=== PATIENT | female | born 2000 | race African-American/Black ===

== ENCOUNTER 2022-06-06 00:27 | Emergency (ER) | payer SELFPAY ==
--- OUTSIDE RECORDS SUMMARY | 2022-06-06 00:30 | XMS REPORT | Continuity of Care Document ---
:2000 Author Organization [facility] t Address [address] [facility] [address] [place] [address] Care Team Providers Name Role Phone NAYELI Attending Clinician Unavailable beverley Attending Clinician Unavailable VIKKI GASTON D.O. Attending Clinician Unavailable MARY FUNK Attending Clinician Unavailable ALVA SORIANO Attending Clinician Unavailable NAYELI Admitting Clinician Unavailable beverley Admitting Clinician Unavailable Problems Condition Condition Condition Status Onset Resolution Last Treating Co mments Source Name Details Category Date Date Treatment Clinician Date Missed Missed Diagnosis Active Common menses menses Spirit [facility] Adult BMI Adult BMI Diagnosis Active C ommon 50.0-59.9 50.0-59.9 Spir it kg/sq m kg/sq m [facility] Encounter Encounter Diagnosis Active C ommon for for Spirit preventati preventati - CHI ve adult ve adult [facility] care exam care exam Medi selene with with Center abnormal abnormal findings findings Allergies, Adverse Reactions, Alerts This patient has no known allergies or adverse reactions. Medications This patient has no known medications. Procedures This patient has no known procedures. Encounters Start End Encounter Admission Attending Care Care Encounter Source Date/Time Date/Time Type Type Clinicians Facility Department ID 2021-10-10 2021-10-10 Outpatient CARMEN CADET [id number] [place] 00:00:00 00:00:00 HN [id number] da [facility] 2020-01-02 2020-01-02 Outpatient beverley SHEA [facility] [id number] [place] 12:13:00 12:13:00 [id number] [facility] 2017-08-24 2017-08-24 Outpatient [facility] [id number] Common 15:00:00 15:00:00 t [facility] 2015-10-19 2015-10-19 Outpatient VIKKI FARRELL [facility] [id number] [place] 11:59:00 11:59:00 [id number] [facility] 2015-09-21 2015-09-21 Outpatient VIKKI FARRELL [facility] [id number] [place] 10:07:00 10:07:00 -[id number] [facility] 2008-11-05 2008-11-06 Emergency ER BA, MARY [facility] [id number] [place] 20:10:00 00:20:00 -[id number] [facility] 2007-01-29 2007-01-29 Outpatient DAISY MCADAMS [facility] [id number] [place] 07:59:00 07:59:00 ALVA Gunter -[id number] [facility] Results This patient has no known results.
[2022-06-06 01:39] LABS: Specific Gravity > 1.030 (1.005-1.030); Urine Bacteria <20 /HPF (<20); Urine Bilirubin NEGATIVE (Negative); Urine Blood 2+ (Negative); Urine Clarity Clear (Clear); Urine Color Light-Yellow (Yellow); Urine Glucose NEGATIVE (Negative); Urine Mucus Slight /HPF (None Seen); Urine Protein NEGATIVE (Negative); Urine Urobilinogen 1+ (Normal); Urine pH 5.5 (5.0-7.0)
[2022-06-06 01:41] LABS: Specific Gravity > 1.030 (1.005-1.030)
[2022-06-06] MEDS ORDERED: KETOROLAC 30 MG/ML INJ ONE (01:42)
[2022-06-06] MEDS ORDERED: LIDOCAINE 4% PATCH ONE (01:42)
--- NOTE | 2022-06-06 04:10 | EDPHYS ---
Physician Documentation [facility] Name: Michaela Wiseman Age: 21 yrs Sex: Female : 2000 Arrival Date: 06/06/2022 Time: 00:32 Bed Treatment Private MD: ED Physician Reza Rodriguez HPI: 06/06 01:10 This 21 yrs old Black Female presents to ER via Ambulatory with complaints of BODY cp ACHES LOW BACK PAIN. 01:10 The patient presents with pain that is acute, with no known mechanism of injury. cp 01:10 The symptoms are located in the low back. Onset: The symptoms/episode began/occurred 2 cp month(s) ago, started upon awakening. Associated signs and symptoms: Pertinent positives: body aches, bilateral leg pain, Pertinent negatives: abdominal pain, fever, numbness, weakness, bowel and/or bladder incontinence, saddle anesthesia, weakness. Severity of symptoms: in the emergency department the symptoms have improved, moderately. 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 - Social history:: Smoking status: Reported history of juuling and/or vaping. ROS: 01:15 Constitutional: Positive for body aches, Negative for chills, fever, poor PO intake. cp 01:15 Eyes: Negative for injury, pain, redness, and discharge. cp 01:15 ENT: Negative for drainage from ear(s), ear pain, sore throat, difficulty swallowing, difficulty handling secretions. 01:15 Cardiovascular: Negative for chest pain. 01:15 Respiratory: Negative for cough, shortness of breath, wheezing. 01:15 Abdomen/GI: Negative for abdominal pain, nausea, vomiting, and diarrhea, constipation, bowel incontinence. 01:15 Back: Positive for pain at rest, pain with movement. 01:15 : Negative for urinary symptoms, difficulty urinating, bladder incontinence. 01:15 MS/extremity: Positive for pain, of the right leg and left leg, Negative for injury or acute deformity, decreased range of motion. 01:15 Neuro: Negative for altered mental status, headache, numbness, weakness. 01:15 All other systems are negative. Exam: 01:20 Constitutional: The patient appears in no acute distress, alert, awake, non-toxic, well cp developed, well nourished, obese. 01:20 Head/Face: Normocephalic, atraumatic. cp 01:20 Eyes: Periorbital structures: appear normal, Conjunctiva: normal, no exudate, no injection, Sclera: no appreciated abnormality, Lids and lashes: appear normal, bilaterally. 01:20 ENT: External ear(s): are unremarkable, Nose: is normal, Mouth: Lips: moist, Oral mucosa: pink and intact, moist, Posterior pharynx: is normal, airway is patent, no erythema, no exudate. 01:20 Chest/axilla: Inspection: normal. 01:20 Cardiovascular: Rate: normal, Rhythm: regular, Edema: is not appreciated, JVD: is not appreciated. 01:20 Respiratory: the patient does not display signs of respiratory distress, Respirations: normal, no use of accessory muscles, no retractions, labored breathing, is not present, Breath sounds: are clear throughout, no decreased breath sounds, no stridor, no wheezing. 01:20 Abdomen/GI: Inspection: obese Bowel sounds: active, all quadrants, Palpation: abdomen is soft and non-tender, in all quadrants. 01:20 Back: pain, that is moderate, of the lumbar area, ROM is painful, with all movement, Straight leg raises: of both lower extremities does not illicit pain. 01:20 Neuro: Orientation: to person, place \T\ time. Mentation: is normal, Motor: moves all fours, strength is normal, Sensation: is normal, Deep tendon reflexes are 2+ (normal) in the right patellar, right Achilles, left patellar and left Achilles. Vital Signs: 00:45 BP 118 / 79; Pulse 71; Resp 18; Temp 98.5; Pulse Ox 99% ; Weight 131.54 kg (R); Height kl 5 ft. 1 in. ; Pain 8/10; 00:45 Body Mass Index 54.79 (131.54 kg, 154.94 cm) kl 00:45 Pain Scale: Adult kl MDM: 00:41 Patient medically screened. rn 01:00 Differential diagnosis: Cholelithiasis Pyelonephritis ruptured disc, Ureterolithiasis cp vertebral fracture, sciatica, cauda equina, kidney stone, ureter stone. 01:59 ED course: US tech reports negative DVT study. cp 04:08 Data reviewed: vital signs, nurses notes, lab test result(s), radiologic studies, CT cp scan. 04:08 I considered the following discharge prescriptions or medication management in the cp emergency department Medications were administered in the Emergency Department. See MAR. Care significantly affected by the following chronic conditions: Obesity. Counseling: I had a detailed discussion with the patient and/or guardian regarding: the historical points, exam findings, and any diagnostic results supporting the discharge/admit diagnosis, lab results, radiology results, the need for outpatient follow up, a family practitioner, to return to the emergency department if symptoms worsen or persist or if there are any questions or concerns that arise at home. Response to treatment: the patient's symptoms have mildly improved after treatment, and as a result, I will discharge patient. 06/06 01:00 Order name: Urine W/Microscopic (UAM); Complete Time: 01:49 cp 06/06 01:49 Interpretation: Normal except: Urine SG > 1.030; UKET 1+; UBLD 2+; UUROB 1+; URBC 5-10. cp 06/06 01:00 Order name: PREGU; Complete Time: 01:49 cp 06/06 01:23 Order name: US Extremity Venous W Compression Bassam cp 06/06 01:50 Order name: CT Stone Protocol cp Administered Medications: 02:12 Drug: Lidoderm Topical Patch 5 % (700 mg/patch) 1 patches Route: Topical; Site: kl affected area; 04:43 Follow up: Response: No adverse reaction; Marked relief of symptoms kl 02:12 Drug: Ketorolac IM 60 mg Route: IM; Site: right vastus lateralis; kl 04:43 Follow up: Response: No adverse reaction; Marked relief of symptoms kl Disposition: 06:15 Co-signature as Attending Physician, Reza Rodriguez MD I reviewed the patient's care rn provided by the Advanced Practice Provider and agree with the diagnosis and treatment plan. Disposition Summary: 06/06/22 04:09 Discharge Ordered Location: Home cp Problem: new cp Symptoms: have improved cp Condition: Stable cp Diagnosis - Low back pain cp - Pain in left leg cp - Pain in right leg cp Followup: cp - With: Private Physician - When: 2 - 3 days - Reason: Recheck today's complaints Discharge Instructions: - Discharge Summary Sheet cp - Acute Back Pain, Adult cp - Musculoskeletal Pain cp - Heat Therapy cp - Back Exercises cp Forms: - Work release form kl - Medication Reconciliation Form cp - Thank You Letter cp - Antibiotic Education cp - Prescription Opioid Use cp Prescriptions: - Cyclobenzaprine 10 mg Oral Tablet - take 1 tablet by ORAL route every 8 hours As needed; 30 tablet; Refills: 0, cp Product Selection Permitted - Diclofenac Sodium 75 mg Oral Tablet Sustained Release - take 1 tablet by ORAL route 2 times per day; 30 tablet; Refills: 0, Product cp Selection Permitted Signatures: Dispatcher [employer] Desire Vazquez RN RN Reza Garay MD MD rn Page, Corey, PA PA cp Corrections: (The following items were deleted from the chart) 06/07 01:18 06/06 01:10 Onset: The symptoms/episode began/occurred last week, started upon cp awakening, cp
--- NOTE | 2022-06-06 04:10 | ER ---
Nurse's Notes [facility] Name: Michaela Wiseman Age: 21 yrs Sex: Female : 2000 Arrival Date: 06/06/2022 Time: 00:32 Bed Treatment Private MD: Diagnosis: Low back pain;Pain in left leg;Pain in right leg Presentation: 06/06 00:45 Chief complaint: Patient states: generalized body aches and low back pain x 2 months. Coronavirus screen: Vaccine status: Patient reports being unvaccinated. Ebola Screen: Patient negative for fever greater than or equal to 101.5 degrees Fahrenheit, and additional compatible Ebola Virus Disease symptoms. Initial Sepsis Screen: Does the patient meet any 2 criteria? No. Patient's initial sepsis screen is negative. Does the patient have a suspected source of infection? No. Patient's initial sepsis screen is negative. Risk Assessment: Do you want to hurt yourself or someone else? Patient reports no desire to harm self or others. 00:45 Method Of Arrival: Ambulatory 00:45 Acuity: MADAN 4 04:46 Onset of symptoms is unknown. Triage Assessment: 00:47 General: Appears uncomfortable, obese, well groomed, Behavior is calm, cooperative. kl Pain: Complains of pain in generalized body aches. EENT: No deficits noted. No signs and/or symptoms were reported regarding the EENT system. Neuro: No deficits noted. Johnson Agitation-Sedation Scale (RASS):. Cardiovascular: No deficits noted. Respiratory: No deficits noted. GI: No deficits noted. No signs and/or symptoms were reported involving the gastrointestinal system. : No deficits noted. No signs and/or symptoms were reported regarding the genitourinary system. 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 - Social history:: Smoking status: Reported history of juuling and/or vaping. Screenin:45 [facility] Fall Risk Assessment (Adult) History of falling in the last 3 months, kl including since admission No falls in past 3 months (0 pts) Confusion or Disorientation No (0 pts) Intoxicated or Sedated No (0 pts) Impaired Gait No (0 pts) Mobility Assist Device Used No (0 pt) Altered Elimination No (0 pt) Score/Fall Risk Level 0 - 2 = Low Risk Oriented to surroundings, Maintained a safe environment. Abuse screen: Denies threats or abuse. Nutritional screening: No deficits noted. Tuberculosis screening: No symptoms or risk factors identified. Assessment: 01:30 Reassessment: Patient appears in no apparent distress at this time. Patient and/or kl family updated on plan of care and expected duration. Pain level reassessed. Patient states feeling better. Vital Signs: 00:45 BP 118 / 79; Pulse 71; Resp 18; Temp 98.5; Pulse Ox 99% ; Weight 131.54 kg (R); Height kl 5 ft. 1 in. ; Pain 8/10; 00:45 Body Mass Index 54.79 (131.54 kg, 154.94 cm) kl 00:45 Pain Scale: Adult ED Course: 00:32 Patient arrived in ED. es 00:41 Reza Rodriguez MD is Attending Physician. rn 00:41 Uzair Camacho PA is PHCP. cp 00:46 Triage completed. kl 02:07 US Extremity Venous W Compression Bassam In Process Unspecified. EDMS 03:03 CT Stone Protocol In Process Unspecified. EDMS 04:00 Resting quietly. Appears to be sleeping. kl 04:45 Patient has correct armband on for positive identification. kl 04:45 No provider procedures requiring assistance completed. Patient did not have IV access kl during this emergency room visit. 04:46 Arm band placed on. kl Administered Medications: 02:12 Drug: Lidoderm Topical Patch 5 % (700 mg/patch) 1 patches Route: Topical; Site: kl affected area; 04:43 Follow up: Response: No adverse reaction; Marked relief of symptoms kl 02:12 Drug: Ketorolac IM 60 mg Route: IM; Site: right vastus lateralis; kl 04:43 Follow up: Response: No adverse reaction; Marked relief of symptoms kl Medication: 04:47 VIS not applicable for this client. kl Outcome: 04:09 Discharge ordered by . cp 04:46 Discharged to home ambulatory. kl 04:46 Condition: good 04:46 Discharge instructions given to patient, Instructed on discharge instructions, follow up and referral plans. Demonstrated understanding of instructions, follow-up care, medications, Prescriptions given X 2. 04:47 Patient left the ED. kl Signatures: Dispatcher [employer] Desire Vazquez RN RN kl Salyer, Edna es Nieto, Roman, MD MD rn Page, Corey, PA PA cp
[2022-06-06 04:51] VITALS: BP 118/79; TEMP 98.5; O2SAT 99
--- NOTE | 2022-06-07 01:05 | RAD REPORT ---
EXAM DESCRIPTION: CT Abdomen and Pelvis Without Intravenous Contrast CLINICAL HISTORY: The patient is 21 years old and is Female; low back pain;Hematuria TECHNIQUE: Axial computed tomography images of the abdomen and pelvis without intravenous contrast. Sagittal and coronal reformatted images were created and reviewed. This CT exam was performed usi ng one or more of the following dose reduction techniques: automated exposure control, adjustment o f the mA and/or kV according to patient size, and/or use of iterative reconstruction technique. COMPARISON: No relevant prior studies available. FINDINGS: LUNG BASES: Unremarkable. No mass. No consolidation. ABDOMEN: LIVER: The liver is enlarged and mildly fatty. GALLBLADDER AND BILE DUCTS: The gallbladder is contracted. PANCREAS: Unremarkable. No ductal dilation. SPLEEN: Unremarkable. ADRENALS: Unremarkable. No mass. KIDNEYS AND URETERS: No obstructing stones. No hydronephrosis. No perinephric fluid. STOMACH AND BOWEL: The stomach is distended with food contents. The small bowel is normal in selene iber. Stool is present throughout colon. There is no mucosal thickening or evidence of obstruction. PELVIS: APPENDIX: The appendix is normal in caliber without surrounding inflammation. BLADDER: Unremarkable. No stones. REPRODUCTIVE: Unremarkable as visualized. ABDOMEN and PELVIS: INTRAPERITONEAL SPACE: Unremarkable. No free air. No significant fluid collection. BONES/JOINTS: No acute fracture. SOFT TISSUES: The soft tissues are normal. VASCULATURE: Unremarkable. No abdominal aortic aneurysm. LYMPH NODES: Unremarkable. No enlarged lymph nodes. IMPRESSION: No acute findings on this noncontrasted CT of the abdomen and pelvis to explain the rachana ent's symptoms. Electronically signed by: Veronica Amor MD 06/06/2022 3:50 AM CDT Due to temporary technical issues with the PACS/Fluency reporting system, reports are being signed by the in house radiologists without review as a courtesy to insure prompt reporting. The interpreting radiologist is fully responsible for the content of the report.
--- NOTE | 2022-06-07 01:28 | RAD REPORT ---
EXAM DESCRIPTION: US Duplex Bilateral Lower Extremities Veins CLINICAL HISTORY: The patient is 21 years old and is Female; PAIN TECHNIQUE: Real-time duplex ultrasound scan of the bilateral lower extremity veins integrating B-mod e two-dimensional vascular structure, Doppler spectral analysis, color flow Doppler imaging and compr ession. COMPARISON: No relevant prior studies available. FINDINGS: Right deep veins: Unremarkable. No DVT in the visualized common femoral, femoral, or p opliteal veins. The veins demonstrate normal color flow, are normally compressible where visualized , with normal phasic flow and/or augmentation response. Left deep veins: Unremarkable. No DVT in the visualized common femoral, femoral, or popliteal veins. The veins demonstrate normal color flow, are normally compressible where visualized, with no rmal phasic flow and/or augmentation response. Soft tissues: No acute findings. IMPRESSION: No evidence of DVT in the bilateral lower extremity veins. Electronically signed by: Nahid Walton MD 06/06/2022 2:17 AM CDT Due to temporary technical issues with the PACS/Fluency reporting system, reports are being signed by the in house radiologists without review as a courtesy to insure prompt reporting. The interpreting radiologist is fully responsible for the content of the report.
== END 2022-06-06 04:47 | disposition home or self-care (01) ==
LOC: ER 00:27
DX: M54.50 Low back pain, unspecified (principal); M79.605 Pain in left leg; M79.604 Pain in right leg
CPT/HCPCS: 74176; 76377; 81001; 81025; 93970; 96372; 99283; J2001